=== PATIENT | female | born 1955 | race Caucasian/White ===

== ENCOUNTER → 2017-07-23 | Outpatient (CLI) | payer BC ==
[~2017-07-23] MED LIST: REGADENOSON 0.4 MG/5 ML DISP.SYRIN. IV ONE
--- NOTE | 2017-07-30 19:24 | PCVCIMAG ---
APPROVED REPORT Exam: Nuclear Stress Test Indication: Chest pain Patient Location: Out-Patient Stress Nurse: Celeste Barber RN, Madie Wagner RN [place] Tech:Ellen Mike [facility] Ht: 5 ft 7 in Wt: 182 lbs BSA: 1.94 m2 HR: 81 bpm BP: 139/80 mmHg BMI: 28.5 Rhythm: NSR Medical History Medical History: CHF, Age, Former Smoker Medications: ASA, Lasix, Losartan Allergies: Promethzaine, Gentamycin, prochlorperazine Pretest Chest Pain Characteristics: No chest pain Exercise History: Physically active Physical Disabilities: physical limitations NM EXAM: Myocardial Perfusion REST/STRESS Imaging Protocol: Rest Tc-99m/Stress Tc-99m 1 day Resting Data Rest SPECT myocardial perfusion imaging was performed in supine position 45 minutes following the intravenous injection of 10.32.1 mCi of Tc-99m Sestamibi. Time of rest injection: 0800 Date: 07/23/2017 Administration Route: IV Administration Site: Right AC Pharmacologic Stress Pharmacologic stress test was performed by injecting Regadenoson 0.4 mg IV push followed by the intravenous injection of 32.1 mCi of Tc-99m Sestamibi. Time of stress injection: 0930 Date: 07/23/2017 Administration Route: IV Administration Site: Right AC Gated Stress SPECT was performed 45 minutes after stress injection. The images were gated to evaluate regional wall motion and calculate left ventricular ejection fraction. Study Quality Study: Good Study Data Post stress, the left ventricular ejection was 82%.. SSS: 1 SRS: 0 SDS: 1 TID = 0.69. Perfusion Small sized area of moderate reversible ischemia involving the apex left ventricle consistent with a left anterior descending distribution. Wall Motion Normal left ventricular size and function with no regional wall motion abnormalities. Nuclear Conclusion Small sized area of moderate reversible ischemia involving the apex left ventricle consistent with a left anterior descending distribution. Normal left ventricular size and function with no regional wall motion abnormalities. Post stress, the left ventricular ejection was 82%.. No prior study available for comparison. Interpreted by: Orville Davila MD Electronically Approved: 07/24/2017 07:44:02 Stress Test Details Stress Test: Pharmacologic stress was paired with low level exercise. Reason for pharmacologic stress test: physical limitation. HR Resting HR: 81 bpmMax Heart Rate (APMHR): 157 bpm Max HR Achieved: 117 bpmTarget HR (85% APMHR): 133 bpm % of APMHR: 74 Recovery HR: 90 bpm BP Resting BP: 139/80 mmHg Max BP: 156/78 mmHg ECG Resting ECG: Sinus Rhythm Stress ECG: Sinus Tachycardia Recovery ECG: Sinus Rhythm Clinical Reason for Termination: Completed protocol Stress Symptoms: Chest pain, Dyspnea Exercise duration: 4 min 00 sec Exercise capacity: 1.6 METs Symptoms resolved during recovery. Stress ECG Conclusion ECG: Non-ischemic Clinical: Non-ischemic <Conclusion> ECG: Non-ischemic Clinical: Non-ischemic
== END | disposition home or self-care (01) ==
LOC: PCVCIMAG 07:59
PROVIDERS: ATTEND Internal Medicine Cardiovascular Disease
DX: R07.9 Chest pain, unspecified (principal)
CPT/HCPCS: 78452; 93017; A9500; J2785

== ENCOUNTER → 2017-11-03 | Outpatient (CLI) | payer BC | END | disposition home or self-care (01) | LOC: PCVCIMAG 09:30 | DX: I07.1 Rheumatic tricuspid insufficiency (principal); I48.91 Unspecified atrial fibrillation; R06.00 Dyspnea, unspecified; I73.00 Raynaud's syndrome without gangrene; G47.30 Sleep apnea, unspecified; R06.02 Shortness of breath | CPT/HCPCS: 93306 ==